=== PATIENT | male | born 1985 | race Caucasian/White ===

== ENCOUNTER 2016-07-01 06:08 | Emergency (ER) | payer SELFPAY ==
[2016-07-01] MEDS ORDERED: XYLOCAINE 1%/ EPI 1:100,000 INFILTRATI ONE (08:23)
[2016-07-01] MEDS ORDERED: BOOSTRIX IM ONE (08:23)
[2016-07-01] MEDS ORDERED: NACL 0.9% IR ONE (09:00)
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
[2016-07-01 10:46] VITALS: BP 92/56
== END 2016-07-01 11:33 | disposition home or self-care (01) ==
LOC: ED 06:08
DX: S01.511A Laceration without foreign body of lip, initial encounter (principal); F17.200 Nicotine dependence, unspecified, uncomplicated; W22.8XXA Striking against or struck by other objects, initial encounter; Y93.89 Activity, other specified; Y99.9 Unspecified external cause status; Y92.89 Other specified places as the place of occurrence of the external cause
CPT/HCPCS: 90471; 90715